=== PATIENT | male | born 2000 | race African-American/Black ===

== ENCOUNTER 2023-11-22 22:36 | Emergency (ER) | payer BC ==
[~2023-11-22] VITALS: Ht 193 cm; Wt 77.0 kg
[2023-11-22 22:42] VITALS: TEMP 98.6; O2SAT 100
[2023-11-23] MEDS ORDERED: TOPUD PO (00:28)
[2023-11-23] MEDS ORDERED: IBUP-2029 MT (00:28)
[2023-11-23 01:39] VITALS: BP 140/86; PULSE 73; RESP 14
== END 2023-11-23 01:40 | disposition home or self-care (01) ==
LOC: ER 22:36
DX: S49.91XA Unspecified injury of right shoulder and upper arm, initial encounter (principal); S69.91XA Unspecified injury of right wrist, hand and finger(s), initial encounter; W18.39XA Other fall on same level, initial encounter; Y93.89 Activity, other specified; Y92.89 Other specified places as the place of occurrence of the external cause; Y99.8 Other external cause status
CPT/HCPCS: 73030; 73110; 99284